=== PATIENT | female | born 1995 ===

== ENCOUNTER 2019-04-21 23:58 | Emergency (ER) | payer OTHER ==
[~2019-04-21] VITALS: Ht 157.5 cm; Wt 48.1 kg
[~2019-04-21 23:58] MED LIST: FLUO10CA13 PO; NALT50TA PO; PROP10TA16 PO
[2019-04-22 00:04] VITALS: BP 136/74
--- NOTE | 2019-04-22 00:28 | NUR ---
PT C/O RLQ PAIN RADIATING TO LLQ SINCEX X1 WEEK AGO ALONG WITH FLANK PAIN. PT DENIES N/V AND BLADDER PAIN. PT REPORTS DIARRHEA CHRONICALLY. PT DENIES PAIN WITH URINATION.
--- NOTE | 2019-04-22 00:37 | NUR ---
DURING EVALUATION BY ZAIDA, ERP ASKED PATIENT ABOUT SMITH ON LEFT WRIST. PT BECAME VERBALLY ABUSIVE AND STATED "I DONT WANT TO FUCKING TALK ABOUT THAT", PT STARTED THROWING THINGS. ERP AND THIS RN ATTEMPTED TO DEESCALATE PT AND FAMILY STARTED SHOUTING AT ERP AND THIS RN. PT STATED "I JUST WANT TO LEAVE". AMA PAPERWORK PROVIDED TO PATIENT TO D/C. PT ABLE TO DRESS SELF AND AMBULATE TO D/C DESK WITH STEADY GAIT. ALL BELONGINGS WITH PT.
== END 2019-04-22 00:41 | disposition home or self-care (01) ==
LOC: ED 04-22 00:20
DX: R10.30 Lower abdominal pain, unspecified (principal); R11.0 Nausea; F12.10 Cannabis abuse, uncomplicated; F17.290 Nicotine dependence, other tobacco product, uncomplicated; Z72.89 Other problems related to lifestyle
CPT/HCPCS: 99281

== ENCOUNTER 2019-05-28 16:40 | Emergency (ER) | payer OTHER, MEDICAID ==
[~2019-05-28] VITALS: Ht 157.5 cm; Wt 45.0 kg
[2019-05-28 16:44] VITALS: BP 152/93
--- NOTE | 2019-05-28 17:49 | NUR ---
pt verbalizes desire to just go home at this point. refuses ua. discussed poc with pt whom verbalizes understanding but demonstrates poor coping skills. md will place pt on legal hold until psych eval
--- NOTE | 2019-05-28 17:54 | NUR ---
customizer: SHWETA Gilmore at bedside to assess pt
== END 2019-05-28 19:00 | disposition home or self-care (01) ==
LOC: ED 18:30
DX: F31.9 Bipolar disorder, unspecified (principal); F17.200 Nicotine dependence, unspecified, uncomplicated; R00.2 Palpitations; R00.0 Tachycardia, unspecified
CPT/HCPCS: 93005; 99283

== ENCOUNTER 2019-07-06 17:10 | Emergency (ER) | payer OTHER, MEDICAID ==
[~2019-07-06] VITALS: Ht 157.5 cm; Wt 49.2 kg
[2019-07-06 17:41] VITALS: BP 133/95
== END 2019-07-06 17:54 | disposition home or self-care (01) ==
LOC: ED 17:45
DX: F41.1 Generalized anxiety disorder (principal); Z76.0 Encounter for issue of repeat prescription; F31.9 Bipolar disorder, unspecified; F17.200 Nicotine dependence, unspecified, uncomplicated
CPT/HCPCS: 99283

== ENCOUNTER 2019-11-28 16:29 | Emergency (ER) | payer MEDICAID ==
[~2019-11-28] VITALS: Ht 157.5 cm; Wt 49.3 kg
[2019-11-28 16:36] VITALS: BP 132/84
[2019-11-28 17:33] LABS: MICROSCOPIC AUTO
[2019-11-28 18:03] LABS: HCG UR SG 1.024 (1.003-1.030)
--- NOTE | 2019-11-28 18:32 | NUR ---
PT CAME IN CO OF VAGINAL PAIN AND "BUMPS DOWN THERE". PT IS [facility] [place]. UA SENT. AWAITING MD FOR ASSESSMENT
[2019-11-28] MEDS ORDERED: CEFTRIAXONE 1,000 MG ONE (18:55)
[2019-11-28] MEDS ORDERED: AZITHROMYCIN 500 MG TABLET ONE (18:55)
[2019-11-28] MEDS ORDERED: CEFTRIAXONE 250 MG IM ONE (19:00)
[2019-11-28] MEDS ORDERED: AZITHROMYCIN 500 MG TABLET PO ONE (19:00)
[2019-11-28 19:06] LABS: CLUE CELLS NONE SEEN (NONE SEEN)
[2019-11-28 19:07] LABS: WET PREP WBCS FEW (FEW)
== END 2019-11-28 19:40 | disposition home or self-care (01) ==
LOC: ED 19:19
DX: N30.00 Acute cystitis without hematuria (principal); A60.04 Herpesviral vulvovaginitis; N76.0 Acute vaginitis
CPT/HCPCS: 81001; 81025; 87077; 87086; 87210; 87491; 87591; 87808; 96372; 99284; J0696; 87186

== ENCOUNTER 2019-12-15 15:06 | Emergency (ER) | payer MEDICAID ==
[~2019-12-15] VITALS: Ht 157.5 cm; Wt 50.8 kg
--- NOTE | 2019-12-15 15:29 | NUR ---
PT STATES SHE WAS TAKING MEDICATION FOR HERPES - STARTED 11/28/19 - "I MISSED A COUPLE OF DOSES". REPORTS BURNING, ITCHING, FEELING LIKE A BLISTER. REPORTS LOWER ABD PAIN. DENIES N/V. OTC UTI MEDICATION 0800 TODAY (UNKNOWN NAME).
[2019-12-15] MEDS ORDERED: ACYC-57 PO (15:33)
[2019-12-15] MEDS ORDERED: ESCI20TA10 PO (15:33)
[2019-12-15] MEDS ORDERED: LORA-446 PO (15:33)
--- NOTE | 2019-12-15 15:41 | NUR ---
JU ESTRADA AT BS FOR VAG EXAM W/ THIS RN ASSIST.
--- NOTE | 2019-12-15 16:25 | NUR ---
PT REPORT TO GABE PHILLIPS RN. PT CARE TRANSFERRED.
[2019-12-15 17:02] LABS: MICROSCOPIC INDICATED
--- NOTE | 2019-12-15 17:02 | NUR ---
PER LAB, UA RESULTS STILL PENDING.
[2019-12-15 17:37] VITALS: BP 104/66
== END 2019-12-15 17:39 | disposition home or self-care (01) ==
LOC: ED 16:07
DX: B00.1 Herpesviral vesicular dermatitis (principal); R10.2 Pelvic and perineal pain; N89.8 Other specified noninflammatory disorders of vagina; R30.0 Dysuria; F17.200 Nicotine dependence, unspecified, uncomplicated
CPT/HCPCS: 81001; 87086; 99284